=== PATIENT | female | born 2000 | race Caucasian/White ===

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

== ENCOUNTER 2024-01-01 10:21 | Day surgery (SDC) | payer BC ==
--- OUTSIDE RECORDS SUMMARY | 2024-01-01 10:24 | XMS REPORT | Continuity of Care Document ---
Author Name Unknown Address [address] [place] [address] [place] [address] [facility] Address [address] [facility] [address] [place] [address] Care Team Providers Care Intake Nurse Name Role Phone [email or web address] Attending Clinician Unavaila ble [email or web address] Admitting Clinician Unavaila ble Problems Condition Name Condition Details Condition Category Status Onset Date Resolution Date Last Treatment Date Treating Clinician Comments Source Premenstru al dysphoric disorder Premenstru al Dysphoric Disorder Problem Active 08-26 00:00: 00 [facility] Dysmenorrh ea Dysmenorrh ea Problem Active 08-26 00:00: 00 [facility] Headache Headache Problem Active 05-09 00:00: 00 [facility] Gynecologi lizeth examinatio n abnormal Gynecologi lizeth Examinatio n Abnormal Problem Active 05-09 00:00: 00 [facility] Hyperlipid emia Hyperlipid emia Problem Active 06-22 00:00: 00 [facility] Neutropeni a Neutropeni a Problem Active 06-22 00:00: 00 [facility] Irregular periods Irregular Periods Problem Active 05-27 00:00: 00 [facility] Moderate major depression , single episode Moderate Major Depression , Single Episode Problem Active 05-27 00:00: 00 [facility] Gender identity disorder Gender Identity Disorder Problem Active 05-27 00:00: 00 [facility] Social History Smoking Status Start Date Stop Date Source Never Smoker [facility] Medications Ordered Medication Name Filled Medication Name Start Date Stop Date Current Medication? Ordering Clinician Indication Dosage Frequency Signature (SIG) Comments Components Source Prozac 10 mg capsule Take 1 capsule every day by oral route for 30 days. May take 7-10 days monthly beginning day before onset of PMDD s/s, or may take daily Prozac 10 mg capsule Take 1 capsule every day by oral route for 30 days. May take 7-10 days monthly beginning day before onset of PMDD s/s, or may take daily No 1capsul e(s) Q1D Prozac 10 mg capsule Take 1 capsule every day by oral route for 30 days. May take 7-10 days monthly beginning day before onset of PMDD s/s, or may take daily [facility] Vital Signs Vital Name Observation Time Observation Value Comments S ource Height 2023-08-27 00:00:00 69 [in_i] [facility] Body Weight 2023-08-27 00:00:00 135.4 [lb_av] [facility] BP Diastolic 2023-08-27 00:00:00 65 mm[Hg] [facility] BMI (Body Mass Index) 2023-08-27 00:00:00 20 kg/m2 [facility] BP Systolic 2023-08-27 00:00:00 102 mm[Hg] [facility] Encounters Start Date/Time End Date/Time Encounter Type Admission Type Attending Clinicians Care Facility Care Department Encounter ID Source 2023-08-27 00:00:00 2023-08-27 00:00:00 Che Shepard, FACILITIES PLANNER: [address] [place], [place] [address], [place] [address] , Ph. [facility] - [email or web address] [facility]* [id number] [facility] 2023-01-20 00:00:00 2023-01-20 00:00:00 Outpatient [email or web address]_Xochilt diyala_S [facility] [id number] [facility]
[2024-01-01 11:06] LABS: Absolute Eosinophils 0.2 K/uL (0-0.5); Absolute Lymphocytes (CBC) 1.4 K/uL (0.7-4.9); Absolute Monocytes 0.8 K/uL (0.1-1.3); Absolute Neutrophil 8.2 K/uL (1.8-8.0); Basophils % 0.3 % (0-1.3); Eosinophils % 2.1 % (0-4.4); Hematocrit 38.1 % (36.0-45.0); Hemoglobin 12.8 g/dL (12.0-15.0); MCH 29.2 pg (27.0-35.0); MCHC 33.5 g/dL (32.0-36.0); MCV 87.2 fL (80-100); MPV 9.2 fL (7.6-11.3); Monocytes % 7.6 % (3.3-12.3); Platelets 202 thou/uL (152-406); RBC Red Blood Cell Count 4.36 M/uL (3.86-4.86); Red Cell Distribution Width 13.8 % (12.1-15.2)
[2024-01-01 11:27] LABS: AST/SGOT 12 U/L (15-37); Albumin 3.9 g/dL (3.4-5.0); Alkaline Phosphatase 71 U/L (45-117); Anion Gap 7.6 mEq/L (5.0-15.0); BUN Blood Urea Nitrogen 7 mg/dL (7-18); Bicarbonate 25 mEq/L (21-32); Bilirubin Total 1.4 mg/dL (0.2-1.0); Globulin 3.8 g/dL (2.3-3.5); Glomerular Filtration Rate 130 ml/min (=/>90); Glucose Level 87 mg/dL (74-106); Lipase 30 U/L (13-75); Potassium 3.6 mEq/L (3.5-5.1); Protein, Total 7.7 g/dL (6.4-8.2); Sodium Level 137 mEq/L (136-145)
[2024-01-01 11:28] LABS: ALT/SGPT < 14 U/L (13-56)
--- NOTE | 2024-01-01 12:21 | RAD REPORT ---
EXAMINATION: CT ABDOMEN AND PELVIS WITH CONTRAST CLINICAL INDICATION: Perirectal pain TECHNIQUE: CT abdomen and pelvis was performed, after the administration of IV contrast, as per [facility] protocol. Axial, sagittal and coronal reconstructions were obtained. One or more of the following dose reduction techniques were used: Automated exposure control, adjustment of the mA and k V according to patient size, and iterative reconstruction. Unless otherwise specified, incidental findings do not require dedicated imaging follow-up. COMPARISON: 02/19/2013 FINDINGS: LOWER CHEST: The visualized lung bases are clear. LIVER: Normal in size and contour. No focal lesion. SPLEEN: Normal size. No focal lesion. PANCREAS: No mass, ductal dilation, or himanshu-pancreatic fluid. ADRENALS: Normal; no mass. KIDNEYS: Normal size and contour. No hydronephrosis. GASTROINTESTINAL TRACT: No evidence of free air, significant intra-abdominal free fluid, bowel obstru ction or abscess. APPENDIX: Normal appendix. LYMPH NODES: No lymphadenopathy. MUSCULOSKELETAL: No acute or suspicious osseous abnormality. ADDITIONAL FINDINGS: 37 mm cystic structure right adnexa presumably ovarian follicle. Mild inflammation is seen along the left aspect of the perineum extending from the left labia majora to the left perirectal region. There is a 15 mm area of focal inflamed fat left perirectal location likely early developing abscess. IMPRESSION: Inflammation is seen along the left aspect of the perineum as detailed. Focal 15 mm early left perire ctal abscess suspected.
--- NOTE | 2024-01-01 12:59 | ER ---
Nurse's Notes [facility] Name: Marley Benítez Age: 23 yrs Sex: Female : 2000 Arrival Date: 01/01/2024 Time: 10:21 Bed 11 Private MD: Diagnosis: Perirectal abscess Presentation: 12/31 10:39 Chief complaint: Patient states: she was sent from providers office for abscess in ap3 rectal area. patient reports pain as 7/10 at this time. Coronavirus screen: At this time, the client does not indicate any symptoms associated with coronavirus-19. Ebola Screen: No symptoms or risks identified at this time. Initial Sepsis Screen: Does the patient meet any 2 criteria? HR > 90 bpm. Does the patient have a suspected source of infection? No. Patient's initial sepsis screen is negative. Risk Assessment: Do you want to hurt yourself or someone else? Patient reports no desire to harm self or others. Onset of symptoms is unknown. 10:39 Method Of Arrival: Ambulatory ap3 10:39 Acuity: MELECIO 3 ap3 Triage Assessment: 10:41 General: Appears in no apparent distress. Behavior is calm, cooperative, appropriate ap3 for age. Pain: Complains of pain in buttocks Pain currently is 7 out of 10 on a pain scale. Neuro: Level of Consciousness is awake, alert, obeys commands, Oriented to person, place, time, situation. Cardiovascular: Patient's skin is warm and dry. Respiratory: Airway is patent Respiratory effort is even, unlabored, Respiratory pattern is regular, symmetrical. Derm: Reports abscess in rectal area. 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 - Infectious Disease History:: Denies. - Social history:: Smoking status: Patient denies any tobacco usage or history of. Patient uses alcohol, only on a social basis. street drugs, marijuana. - Family history:: not pertinent. Screenin:42 [facility] ED Fall Risk Assessment (Adult) History of falling in the last 3 months, ap3 including since admission No falls in past 3 months (0 pts) Confusion or Disorientation No (0 pts) Intoxicated or Sedated No (0 pts) Impaired Gait No (0 pts) Mobility Assist Device Used No (0 pt) Altered Elimination No (0 pt) Score/Fall Risk Level 0 - 2 = Low Risk Oriented to surroundings, Maintained a safe environment, Educated pt \T\ family on fall prevention, incl call for assistance when getting out of bed, Assessed \T\ reinforced patient's understanding of fall precautions, Hourly rounding (assess needs \T\ fall precautionary measures) done, Used ambulatory aids as needed (educated on \T\ assisted with), Used gait belt as appropriate. Abuse screen: Denies threats or abuse. Nutritional screening: No deficits noted. Tuberculosis screening: No symptoms or risk factors identified. Assessment: 12:42 Reassessment: No changes from previously documented assessment. Patient and/or family ap3 updated on plan of care and expected duration. Pain level reassessed. Patient is alert, oriented x 3, equal unlabored respirations, skin warm/dry/pink. 13:59 Reassessment: No changes from previously documented assessment. Patient and/or family ap3 updated on plan of care and expected duration. Pain level reassessed. Patient is alert, oriented x 3, equal unlabored respirations, skin warm/dry/pink. General: Appears in no apparent distress. Behavior is calm, cooperative, appropriate for age. Pain: Complains of pain in buttocks Pain began gradually. Neuro: Level of Consciousness is awake, alert, obeys commands, Oriented to person, place, time, situation. Cardiovascular: Patient's skin is warm and dry. Respiratory: Airway is patent Respiratory effort is even, unlabored, Respiratory pattern is regular, symmetrical. Derm: Wound noted pelvis. Vital Signs: 10:39 BP 131 / 77; Pulse 92; Resp 17; Temp 97.8; Pulse Ox 100% ; Weight 56.7 kg; Pain 7/10; ap3 11:45 BP 114 / 77; Pulse 89; Resp 17; Pulse Ox 100% ; ap3 13:00 BP 119 / 79; Pulse 85; Resp 18; Pulse Ox 100% ; ap3 14:00 BP 116 / 73; Pulse 91; Resp 17; Pulse Ox 100% ; ap3 15:15 BP 108 / 77; Pulse 87; Temp 97.4; Pulse Ox 100% ; ap3 10:39 Pain Scale: Adult ap3 ED Course: 10:24 Patient arrived in ED. mg5 10:25 Sky Velazquez MD is Attending Physician. rt 10:41 Triage completed. ap3 10:42 Arm band placed on right wrist. ap3 10:43 Patient has correct armband on for positive identification. Placed in gown. Bed in low ap3 position. Call light in reach. Adult w/ patient. Provided Education on: call light education. 10:59 Test, Serum Sent. em1 10:59 CBC with Diff Sent. em1 10:59 CMP Sent. em1 10:59 Lipase Sent. em1 10:59 Initial lab(s) drawn, by me, sent to lab. Inserted saline lock: 22 gauge in right em1 antecubital area, using aseptic technique. Blood collected. Flushed with 10 mL NS. 11:55 CT Abd/Pelvis - IV Contrast Only In Process Unspecified. EDMS 12:58 Robby Ortega MD is Hospitalizing Provider. rt 15:50 No provider procedures requiring assistance completed. Patient admitted, IV remains in ap3 place. Administered Medications: 13:57 Drug: Ondansetron IVP 4 mg IVP once; over 2 minutes Route: IVP; Site: right antecubital;ap3 15:51 Follow up: Response: No adverse reaction ap3 13:57 Drug: Piperacillin-Tazobactam IVPB 3.375 grams IVPB once over 60 mins; (mix in NS 100 ap3 mL) Route: IVPB; Infused Over: 60 mins; Site: right antecubital; 15:51 Follow up: IV Status: Completed infusion ap3 13:58 Drug: morphine IVP or IV 4 mg IVP once over 4 mins {Note: this nurse only administered ap3 half the dose, and wasted the other half per patient request. she did not like the way it was making her feel during administration. CUCA Roman notified, ERP notified. .} Route: IVP; Infused Over: 4 mins; Site: right antecubital; 15:51 Follow up: Response: No adverse reaction; Pain is decreased ap3 Medication: 15:50 VIS not applicable for this client. ap3 Outcome: 12:58 Decision to Hospitalize by Provider. rt 15:50 Admitted to OR ap3 15:50 Condition: good 15:50 Instructed on the need for admit, 15:51 Patient left the ED. ap3 Signatures: Dispatcher [employer] Suraj Mcgovern em1 Yesenia Ventura RN RN ap3 Sky Velazquez MD MD rt Kaylee Bravo mg5
--- NOTE | 2024-01-01 12:59 | EDPHYS ---
Physician Documentation [facility] Name: Marley Benítez Age: 23 yrs Sex: Female : 2000 Arrival Date: 01/01/2024 Time: 10:21 Bed 11 Private MD: ED Physician Sky Velazquez HPI: 12/31 16:20 This 23 yrs old Female presents to ER via Ambulatory with complaints of Abscess. rt 16:20 Patient presents to the ED with possible perirectal abscess. Patient was seen at rt gynocologist office today. States that she noticed swelling to the area for some time but developed pain in the past few days. Denies other acute complaints at this time, symptoms are moderate in severity, no other aggravating or alleviating factors.. 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 - Infectious Disease History:: Denies. - Social history:: Smoking status: Patient denies any tobacco usage or history of. Patient uses alcohol, only on a social basis. street drugs, marijuana. - Family history:: not pertinent. ROS: 16:20 Constitutional: Negative for fever, chills, and weight loss, Cardiovascular: Negative rt for chest pain, palpitations, and edema, Respiratory: Negative for shortness of breath, cough, wheezing, and pleuritic chest pain, Abdomen/GI: Negative for abdominal pain, nausea, vomiting, diarrhea, and constipation, MS/Extremity: Negative for injury and deformity, Exam: 16:20 Constitutional: This is a well developed, well nourished patient who is awake, alert, rt and in no acute distress. Head/Face: Normocephalic, atraumatic. Chest/axilla: Normal chest wall appearance and motion. Nontender with no deformity. No lesions are appreciated. Cardiovascular: Regular rate and rhythm with a normal S1 and S2. No gallops, murmurs, or rubs. Normal PMI, no JVD. No pulse deficits. Respiratory: Lungs have equal breath sounds bilaterally, clear to auscultation and percussion. No rales, rhonchi or wheezes noted. No increased work of breathing, no retractions or nasal flaring. Abdomen/GI: Soft, non-tender, with normal bowel sounds. No distension or tympany. No guarding or rebound. No evidence of tenderness throughout. Skin: Warm, dry with normal turgor. Normal color with no rashes, no lesions, and no evidence of cellulitis. MS/ Extremity: Pulses equal, no cyanosis. Neurovascular intact. Full, normal range of motion. Vital Signs: 10:39 BP 131 / 77; Pulse 92; Resp 17; Temp 97.8; Pulse Ox 100% ; Weight 56.7 kg; Pain 7/10; ap3 11:45 BP 114 / 77; Pulse 89; Resp 17; Pulse Ox 100% ; ap3 13:00 BP 119 / 79; Pulse 85; Resp 18; Pulse Ox 100% ; ap3 14:00 BP 116 / 73; Pulse 91; Resp 17; Pulse Ox 100% ; ap3 15:15 BP 108 / 77; Pulse 87; Temp 97.4; Pulse Ox 100% ; ap3 10:39 Pain Scale: Adult ap3 MDM: 10:32 Patient medically screened. rt 16:20 Differential diagnosis: abscess. Data reviewed: vital signs, nurses notes, lab test rt result(s), radiologic studies. Consideration of Admission/Observation Patient was admitted/placed on observation. Management of patient was discussed with the following: Cleat Blanker: Discussed with Dr. Ortega who will operate on patient. Counseling: I had a detailed discussion with the patient and/or guardian regarding the historical points, exam findings, and any diagnostic results supporting the discharge/admit diagnosis, lab results, radiology results, the need for further work-up and treatment in the hospital. Response to treatment: the patient's symptoms have mildly improved after treatment. 12/31 10:39 Order name: CBC with Diff; Complete Time: 11:34 rt 12/31 10:39 Order name: CMP; Complete Time: 11:34 rt 12/31 10:39 Order name: Lipase; Complete Time: 11:34 rt 12/31 10:39 Order name: Test, Serum; Complete Time: 11:34 rt 12/31 10:39 Order name: CT Abd/Pelvis - IV Contrast Only; Complete Time: 12:22 rt 12/31 10:39 Order name: IV Saline Lock; Complete Time: 10:59 rt 12/31 10:39 Order name: Labs collected and sent; Complete Time: 10:59 rt 12/31 12:55 Order name: NPO; Complete Time: 13:31 rt Administered Medications: 13:57 Drug: Ondansetron IVP 4 mg IVP once; over 2 minutes Route: IVP; Site: right antecubital;ap3 15:51 Follow up: Response: No adverse reaction ap3 13:57 Drug: Piperacillin-Tazobactam IVPB 3.375 grams IVPB once over 60 mins; (mix in NS 100 ap3 mL) Route: IVPB; Infused Over: 60 mins; Site: right antecubital; 15:51 Follow up: IV Status: Completed infusion ap3 13:58 Drug: morphine IVP or IV 4 mg IVP once over 4 mins {Note: this nurse only administered ap3 half the dose, and wasted the other half per patient request. she did not like the way it was making her feel during administration. CUCA Roman notified, ERP notified. .} Route: IVP; Infused Over: 4 mins; Site: right antecubital; 15:51 Follow up: Response: No adverse reaction; Pain is decreased ap3 Disposition Summary: 01/01/24 12:58 Hospitalization Ordered Notes: Hospitalization Status: Observation rt Provider: Robby Ortega rt Condition: Stable rt Problem: new rt Symptoms: are unchanged rt Bed/Room Type: Standard rt Location: Telemetry/MedSurg (Inpatient)(01/01/24 15:41) eb Room Assignment: 210(01/01/24 15:41) eb Diagnosis - Perirectal abscess rt Forms: - Medication Reconciliation Form rt - SBAR form rt - Leadership Thank You Letter rt Signatures: Dispatcher [employer] Yesenia Dang RN RN ap3 Catalina Castro Ryan, MD MD rt Corrections: (The following items were deleted from the chart) 10:40 10:40 CBC+H.LAB.BRZ ordered. EDMS EDMS 10:40 10:40 COMPREHENSIVE METABOLIC PANEL+C.LAB.BRZ ordered. EDMS EDMS 10:40 10:40 LIPASE+C.LAB.BRZ ordered. EDMS EDMS 10:40 10:40 TEST, SERUM+SC.LAB.BRZ ordered. EDMS EDMS 10:40 10:40 Abdomen Pelvis W Con+CT.RAD.BRZ ordered. EDMS EDMS 15: 12:58 Operating Room rt eb 15: 12:58 rt eb
[2024-01-01] MEDS ORDERED: ONDANSETRON 4 MG/2 ML VIAL ONE ×2 (13:42→17:41)
[2024-01-01] MEDS ORDERED: NA CHLORIDE 0.9% 100 ML ONE (13:43)
[2024-01-01] MEDS ORDERED: PIPERACIL/TAZO 3.375 GM VIAL IV ONE (13:43)
[2024-01-01] MEDS ORDERED: MORPHINE 4 MG/ML SYR ONE (13:43)
[2024-01-01] MEDS: Ringers Lactate 1,000 ML IV ONE (15:45)
[2024-01-01] MEDS ORDERED: MIDAZOLAM HCL 2 MG/2 ML INJ ONE (17:18)
[2024-01-01] MEDS ORDERED: propofoL 200 MG/20 ML VIAL IV ONE (17:18)
[2024-01-01] MEDS ORDERED: FENTANYL CITR 100 MCG/2 ML ONE (17:19)
[2024-01-01] MEDS: LIDOCAINE HCL/EPINEPHRINE 20 ML MDV ONE (17:37)
[2024-01-01] MEDS ORDERED: dexAMETHasone 4 MG/ML VIAL ONE (17:42)
--- NOTE | 2024-01-01 17:58 | P.OP ---
Preoperative diagnosis: LEFT perirectal abscess Postoperative diagnosis: LEFT perirectal abscess Primary procedure: Incision and drainage of perirectal abscess Anesthesia: GETA + Local Estimated blood loss: <5cc Specimen: Cultures, Debridement Tissue Findings: ~ 2cm abscess Complications: None Implants: iodoform packing Transferred to: Recovery Room Condition: Good
[2024-01-01] MEDS ORDERED: MEPERIDINE HCL 25 MG/ML SYR ONE (18:00)
[2024-01-01 18:29] VITALS: TEMP 97.8
[2024-01-01 18:36] VITALS: BP 104/69; O2SAT 98
--- NOTE | 2024-01-01 21:20 | OP ---
Date of Procedure: 01/01/2024 Surgeon: Robby Ortega MD, Preoperative Diagnosis: Left perirectal abscess. Postoperative Diagnosis: Left perirectal abscess. Procedure: Incision and drainage of left perirectal abscess. Anesthesia: General endotracheal plus local, 1% lidocaine with epinephrine. Estimated Blood Loss: Less than 5 cc. Specimen: Culture sent for both aerobic and anaerobic speciation, debrided tissue. Findings: Approximately 2 cm perirectal abscess. Complications: None. Implants: Iodoform packing. Disposition: Transferred to recovery room in good condition. Procedure In Detail: After informed consent was obtained, patient was brought to the operating room, prepped and draped in the usual fashion. After adequate anesthesia was achieved, patient remained i n a lithotomy position. I anesthetized the left gluteal area approximately 1 cm from the perirectal edge/mucosa. I made an elliptical incision down. I immediately encountered abscess-type material. It was cultured for both aerobic and anaerobic speciation. I then removed this and found that there was some tunneling deeper. I opened this bluntly using a hemostat ultimately getting the cavity unro ofed. Additional pus was encountered at this point consistent with multiloculated abscess. After th is was digitized, the remaining loculations broken up. The area was copiously irrigated. Hemostasis was achieved with electrocautery. It was irrigated once again and packed with iodoform packing. St erile dressing was placed over top. The patient tolerated the procedure without incident or complica tion, transferred to PACU in good condition. All counts were correct at the end of the case. SABRA/JORDAN Voice ID: [id number] Report ID: [id number]
== END 2024-01-01 18:55 | disposition home or self-care (01) ==
LOC: ER 10:21 → DS 15:23
PROVIDERS: ATTEND Surgery
PROC: 0D9P3ZX Drainage of Rectum, Percutaneous Approach, Diagnostic (ICD-10-PCS; principal; 2024-01-01 16:30)
DX: K61.1 Rectal abscess (principal)
CPT/HCPCS: 87070; 85025; 36415; 87205; 84703; 87075; 83690; 80053; 74177; 46040; Q9967; J2704; J1100; J2543; J2250; J3010; J2175; J2405 ×2; J7120; 87077; 87186; 88304

== ENCOUNTER 2024-01-02 04:33 | Emergency (ER) | payer BC ==
--- OUTSIDE RECORDS SUMMARY | 2024-01-02 04:37 | XMS REPORT | Continuity of Care Document ---
Author Name Unknown Address [address] [place] [address] [place] [address] thconnect Address [address] [facility] [address] [place] [address] Care Team Providers Care Insurance Coordinator Name Role Phone [email or web address] Attending Clinician Unavaila [...] Stop Date Source Never Smoker [facility] Vital Signs Vital Name Observation Time Observation Value Comments S ource BP Systolic 2024-01-01 00:00:00 119 mm[Hg] [facility] BP Diastolic 2024-01-01 00:00:00 71 mm[Hg] [facility] Height 2024-01-01 00:00:00 69 [in_i] [facility] Body Weight 2024-01-01 00:00:00 141.8 [lb_av] [facility] BMI (Body Mass Index) 2024-01-01 00:00:00 20.9 kg/m2 [facility] Height 2023-08-27 00:00:00 69 [in_i] [facility] Body Weight 2023-08-27 00:00:00 135.4 [lb_av] [facility] BP Diastolic 2023-08-27 00:00:00 65 mm[Hg] [facility] BMI (Body Mass Index) 2023-08-27 00:00:00 20 kg/m2 [facility] BP Systolic 2023-08-27 00:00:00 102 mm[Hg] [facility] Encounters Start Date/Time End Date/Time Encounter Type Admission Type Attending [facility] Facility Care Department Encounter ID Source 2024-01-01 00:00:00 2024-01-01 00:00:00 Kaylee Bustamante PA: [address], [place] [address] , [facility] - [email or web address]_Parul dixon Earle* [id number] [facility] 2023-08-27 00:00:00 2023-08-27 00:00:00 LAVELL AlstonP: [address], [place] [address] , [facility] - GC_[email or web address]_Parul dixon Earle* [id number] [facility] 2023-01-20 00:00:00 2023-01-20 00:00:00 Outpatient [email or web address]_Xochilt garcia_S [facility] [id number] [facility]
[2024-01-02] MEDS ORDERED: CODEINE 30MG/APAP 300MG TAB ONE (05:13)
--- NOTE | 2024-01-02 05:19 | ER ---
Nurse's Notes [facility] [place] Name: Marley Benítez Age: 23 yrs Sex: Female : 2000 Arrival Date: 01/02/2024 Time: 04:33 Bed 14 Private MD: Diagnosis: Postoperative incision check, encounter for postoperative wound check and dressing change, left perirectal abscess status post incision and drainage Presentation: 01/01 04:50 Chief complaint: Patient states: she had surgery yesterday for an abscess and states cp4 that the packing material got wet and fell out. Coronavirus screen: Client denies travel out of the [place] in the last 14 days. At this time, the client does not indicate any symptoms associated with coronavirus-19. Ebola Screen: Patient negative for fever greater than or equal to 101.5 degrees Fahrenheit, and additional compatible Ebola Virus Disease symptoms Patient denies exposure to infectious person. Patient denies travel to an Ebola-affected area in the 21 days before illness onset. No symptoms or risks identified at this time. Initial Sepsis Screen: Does the patient meet any 2 criteria? No. Patient's initial sepsis screen is negative. Does the patient have a suspected source of infection? No. Patient's initial sepsis screen is negative. Risk Assessment: Do you want to hurt yourself or someone else? Patient reports no desire to harm self or others. Onset of symptoms was January 02, 2024. 04:50 Method Of Arrival: Ambulatory cp4 04:50 Acuity: MELECIO 3 cp4 Triage Assessment: 04:52 General: Appears in no apparent distress. uncomfortable, Behavior is calm, cooperative, cp4 appropriate for age. Pain: Complains of pain in buttocks Pain does not radiate. Pain currently is 5 out of 10 on a pain scale. EENT: No signs and/or symptoms were reported regarding the EENT system. Neuro: Level of Consciousness is awake, alert, obeys commands, Oriented to person, place, time, situation. Cardiovascular: Patient's skin is warm and dry. Respiratory: Airway is patent Respiratory effort is even, unlabored. GI: No signs and/or symptoms were reported involving the gastrointestinal system. : No signs and/or symptoms were reported regarding the genitourinary system. Derm: Reports wound dressing removed from surgical site on buttocks. Musculoskeletal: No signs and/or symptoms reported regarding the musculoskeletal system. CREDIT COLLECTIONS REP: 04:52 Not cp4 Historical: - Allergies: 04:52 No Known Allergies; cp4 - PMHx: 04:52 Anxiety; Depression; cp4 - Immunization history:: Adult Immunizations up to date. - Infectious Disease History:: Denies. - Social history:: Smoking status: Patient denies any tobacco usage or history of. - Family history:: not pertinent. Screenin:54 [facility] ED Fall Risk Assessment (Adult) History of falling in the last 3 months, cp4 including since admission No falls in past 3 months (0 pts) Confusion or Disorientation No (0 pts) Intoxicated or Sedated No (0 pts) Impaired Gait No (0 pts) Mobility Assist Device Used No (0 pt) Altered Elimination No (0 pt) Score/Fall Risk Level 0 - 2 = Low Risk Oriented to surroundings, Maintained a safe environment, Assessed \T\ reinforced patient's understanding of fall precautions, Hourly rounding (assess needs \T\ fall precautionary measures) done. Abuse screen: Denies threats or abuse. Nutritional screening: No deficits noted. Tuberculosis screening: No symptoms or risk factors identified. Assessment: 04:54 Reassessment: No changes from previously documented assessment. cp4 Vital Signs: 04:50 BP 125 / 91; Pulse 89; Resp 18; Temp 98; Pulse Ox 100% ; Weight 65.77 kg; Height 5 ft. cp4 9 in. ; Pain 5/10; 04:50 Body Mass Index 21.41 (65.77 kg, 175.26 cm) cp4 04:50 Pain Scale: Adult cp4 [place] Coma Score: 05:10 Eye Response: spontaneous(4). Motor Response: obeys commands(6). Verbal Response: sp4 oriented(5). Total: 15. ED Course: 04:35 Patient arrived in ED. jj6 04:42 David Bright MD is Attending Physician. sp4 04:50 Kellee Barone is Primary Nurse. cp4 04:52 Triage completed. cp4 04:52 Arm band placed on right wrist. Patient placed in an exam room, on a stretcher. cp4 04:54 Bed in low position. Call light in reach. Side rails up X 1. Provided Education on: cp4 surgical site care. 05:16 Robby Ortega MD is Referral Physician. sp4 05:22 No provider procedures requiring assistance completed. Patient did not have IV access cp4 during this emergency room visit. Administered Medications: 05:18 Drug: Acetaminophen-Codeine PO (300 mg-30 mg) 2 tabs PO once; RASS on ADMIN: Combtv4, cp4 Very Agttd3, Agttd2, Rstlss1, AlertClm0, Drwsy-1, Lt Sdtn-2, Mod Sdtn-3, Dp Sdtn-4, UnArsble-5 Route: PO; 05:23 Follow up: Response: No adverse reaction cp4 Medication: 04:54 VIS not applicable for this client. cp4 Outcome: 05:18 Discharge ordered by . sp4 05:22 Discharged to home ambulatory, cp4 05:22 Condition: stable 05:22 Discharge instructions given to patient, Instructed on discharge instructions, follow up and referral plans. Demonstrated understanding of instructions, follow-up care, 05:23 Patient left the ED. cp4 Signatures: Che Chilel Sergey, MD MD sp4 Kellee Barone cp4
--- NOTE | 2024-01-02 05:19 | EDPHYS ---
Physician Documentation [facility] Name: Marley Benítez Age: 23 yrs Sex: Female : 2000 Arrival Date: 01/02/2024 Time: 04:33 Bed 14 Private MD: ED Physician David Bright HPI: 01/01 04:42 This 23 yrs old Female presents to ER via Unassigned with complaints of Post sp4 Surgical Pain, Post Surgical Bleeding. 05:10 23-year-old female had left inferior labial vs Left perirectal abscess drainage sp4 yesterday 01/01/[address] Ortega. . 05:10 Patient states she thinks her packing fell out and she presents here for wound check sp4 and repacking. . 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 - Infectious Disease History:: Denies. - Social history:: Smoking status: Patient denies any tobacco usage or history of. - Family history:: not pertinent. ROS: 05:10 Constitutional: Negative for fever, chills, and weight loss, positive left perianal sp4 postoperative incision discomfort 05:10 All other systems are negative, Exam: 05:10 Constitutional: This is a well developed, well nourished patient who is awake, alert, sp4 and in no acute distress. Head/Face: Normocephalic, atraumatic. Eyes: Pupils equal round and reactive to light, extra-ocular motions intact. Lids and lashes normal. Conjunctiva and sclera are not injected. Cornea within normal limits. Periorbital areas with no swelling, redness, or edema. ENT: Nares patent. No nasal discharge, no septal abnormalities noted. Tympanic membranes are normal and external auditory canals are clear. Oropharynx with no redness, swelling, or masses, exudates, or evidence of obstruction, uvula midline. Mucous membranes moist. Neck: Trachea midline, no thyromegaly or masses palpated, and no cervical lymphadenopathy. Supple, full range of motion without nuchal rigidity, or vertebral point tenderness. Chest/axilla: Normal chest wall appearance and motion. Nontender with no deformity. No lesions are appreciated. Cardiovascular: Regular rate and rhythm with a normal S1 and S2. No gallops, murmurs, or rubs. Normal PMI, no JVD. No pulse deficits. Respiratory: Lungs have equal breath sounds bilaterally, clear to auscultation and percussion. No rales, rhonchi or wheezes noted. No increased work of breathing, no retractions or nasal flaring. Abdomen/GI: Soft, with normal bowel sounds. No distension or tympany. No guarding or rebound. No evidence of tenderness throughout. Back: No spinal tenderness. No costovertebral tenderness. Pelvic Exam: Normal external genitalia. 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 The incision does not need to be repacked. Sterile dressing was replaced. Patient stable for discharge home. Skin: Warm, dry with normal turgor. Normal color with no rashes, no lesions, and no evidence of cellulitis. MS/ Extremity: Pulses equal, no cyanosis. Neurovascular intact. Full, normal range of motion. Neuro: Awake and alert, GCS 15, oriented to person, place, time, and situation. Cranial nerves II-XII grossly intact. Motor strength 5/5 in all extremities. Sensory grossly intact. Psych: Awake, alert, with orientation to person, place and time. Behavior, mood, and affect are within normal limits Vital Signs: 04:50 BP 125 / 91; Pulse 89; Resp 18; Temp 98; Pulse Ox 100% ; Weight 65.77 kg; Height 5 ft. cp4 9 in. ; Pain 5/10; 04:50 Body Mass Index 21.41 (65.77 kg, 175.26 cm) cp4 04:50 Pain Scale: Adult cp4 Alexandra Coma Score: 05:10 Eye Response: spontaneous(4). Motor Response: obeys commands(6). Verbal Response: sp4 oriented(5). Total: 15. MDM: 05:15 Differential diagnosis: rosendo infection, Post operative infection, post op sp4 complications. Data reviewed: vital signs, nurses notes, old medical records. ED course: Dressing was reapplied. The wound does not need to be repacked. Patient advised to see her general surgeon on Thursday for wound check.. 05:18 Patient medically screened. sp4 01/01 05:08 Order name: Wound Care: done by ; Complete Time: 05:11 sp4 Administered Medications: 05:18 Drug: Acetaminophen-Codeine PO (300 mg-30 mg) 2 tabs PO once; RASS on ADMIN: Combtv4, cp4 Very Agttd3, Agttd2, Rstlss1, AlertClm0, Drwsy-1, Lt Sdtn-2, Mod Sdtn-3, Dp Sdtn-4, UnArsble-5 Route: PO; 05:23 Follow up: Response: No adverse reaction cp4 Disposition Summary: 01/02/24 05:18 Discharge Ordered Notes: Location: Home sp4 Problem: new sp4 Symptoms: have improved sp4 Condition: Stable sp4 Diagnosis - Postoperative incision check, encounter for postoperative wound check and sp4 dressing change, left perirectal abscess status post incision and drainage Followup: sp4 - With: Robby Ortega MD - When: 1 - 2 days - Reason: Recheck today's complaints Discharge Instructions: - Discharge Summary Sheet sp4 - Anorectal Abscess sp4 Forms: - Patient Portal Instructions sp4 Signatures: David Bright MD MD sp4 Kellee Barone cp4
[2024-01-02 10:00] VITALS: BP 125/91; TEMP 98; O2SAT 100
== END 2024-01-02 05:23 | disposition home or self-care (01) ==
LOC: ER 04:33
DX: Z48.01 Encounter for change or removal of surgical wound dressing (principal)

== ENCOUNTER 2024-01-25 10:21 | Emergency (ER) | payer BC ==
--- OUTSIDE RECORDS SUMMARY | 2024-01-25 10:23 | XMS REPORT | Continuity of Care Document ---
Author Name Unknown Address [address] [place] [address] [place] [address] [address] [facility] [address] [place] [address] Care Team Providers Care Solution Design And Analysis Manager Name Role Phone [email or web address] Attending Clinician Unavaila [...] End Date/Time Encounter Type Admission Type Attending [facility] Care Department Encounter ID Source 2024-01-01 00:00:00 2024-01-01 00:00:00 Kaylee Bustamante PA: [address], [place] [address] , Ph. [facility] - [email or web address]_Parul dixon Santa* [id number] [facility] 2023-08-27 00:00:00 2023-08-27 00:00:00 LAVELL AlstonP: [address], [place] [address] , Ph. [facility] - GC_[email or web address]_Parul dixon Santa* [id number] [facility] 2023-01-20 00:00:00 2023-01-20 00:00:00 Outpatient [email or web address] [email or web address]_S [facility] [id number] [facility]
--- NOTE | 2024-01-25 11:35 | EDPHYS ---
Physician Documentation [facility] Name: Marley Benítez Age: 23 yrs Sex: Female : 2000 Arrival Date: 01/25/2024 Time: 10:21 Bed 12 Private MD: ED Physician Dougie Brasher HPI: 01/24 11:27 This 23 yrs old Female presents to ER via Ambulatory with complaints of stanley Abscess. 11:27 The patient presents with an abscess of the groin. Description: erythematous, swollen. stanley Onset: The symptoms/episode began/occurred 2 day(s) ago. Possible cause(s): hair. Associated signs and symptoms: The patient has no apparent associated signs or symptoms. Severity of symptoms: At their worst the symptoms were mild, in the emergency department the symptoms are unchanged. The patient has experienced similar episodes in the past, several times. Historical: - Allergies: 11: No Known Allergies; ss - PMHx: 11: Anxiety; Depression; ss - Infectious Disease History:: Denies. - Family history:: not pertinent. ROS: 11:27 Constitutional: Negative for fever, chills, and weight loss, Eyes: Negative for injury, stanley pain, redness, and discharge, ENT: Negative for injury, pain, and discharge, Neck: Negative for injury, pain, and swelling, Cardiovascular: Negative for chest pain, palpitations, and edema, Respiratory: Negative for shortness of breath, cough, wheezing, and pleuritic chest pain, Abdomen/GI: Negative for abdominal pain, nausea, vomiting, diarrhea, and constipation, Back: Negative for injury and pain, : Negative for injury, bleeding, discharge, and swelling, MS/Extremity: Negative for injury and deformity, Neuro: Negative for headache, weakness, numbness, tingling, and seizure, Psych: Negative for depression, anxiety, suicide ideation, homicidal ideation, and hallucinations, Allergy/Immunology: Negative for hives, rash, and allergies, Endocrine: Negative for neck swelling, polydipsia, polyuria, polyphagia, and marked weight changes, Hematologic/Lymphatic: Negative for swollen nodes, abnormal bleeding, and unusual bruising, 11:27 Skin: Positive for erythema, swelling, Exam: 11:27 Constitutional: This is a well developed, well nourished patient who is awake, alert, stanley and in no acute distress. Head/Face: Normocephalic, atraumatic. Eyes: Pupils equal round and reactive to light, extra-ocular motions intact. Lids and lashes normal. Conjunctiva and sclera are non-icteric and not injected. Cornea within normal limits. Periorbital areas with no swelling, redness, or edema. ENT: Nares patent. No nasal discharge, no septal abnormalities noted. Tympanic membranes are normal and external auditory canals are clear. Oropharynx with no redness, swelling, or masses, exudates, or evidence of obstruction, uvula midline. Mucous membranes moist. Neck: Trachea midline, no thyromegaly or masses palpated, and no cervical lymphadenopathy. Supple, full range of motion without nuchal rigidity, or vertebral point tenderness. No Meningismus. Chest/axilla: Normal chest wall appearance and motion. Nontender with no deformity. No lesions are appreciated. Cardiovascular: Regular rate and rhythm with a normal S1 and S2. No gallops, murmurs, or rubs. Normal PMI, no JVD. No pulse deficits. Respiratory: Lungs have equal breath sounds bilaterally, clear to auscultation and percussion. No rales, rhonchi or wheezes noted. No increased work of breathing, no retractions or nasal flaring. Abdomen/GI: Soft, non-tender, with normal bowel sounds. No distension or tympany. No guarding or rebound. No evidence of tenderness throughout. Back: No spinal tenderness. No costovertebral tenderness. Full range of motion. MS/ Extremity: Pulses equal, no cyanosis. Neurovascular intact. Full, normal range of motion. Neuro: Awake and alert, GCS 15, oriented to person, place, time, and situation. Cranial nerves II-XII grossly intact. Motor strength 5/5 in all extremities. Sensory grossly intact. Cerebellar exam normal. Normal gait. Psych: Awake, alert, with orientation to person, place and time. Behavior, mood, and affect are within normal limits. 11:27 Skin: abscess, that is small, of the groin, cellulitis, that is minimal, induration, that is mild is noted, injury, is not appreciated, Vital Signs: 11:25 BP 121 / 86; Pulse 78; Resp 16; Temp 97.5(TE); Pulse Ox 100% on R/A; Weight 60.33 kg; ss Height 5 ft. 8 in. ; Pain 5/10; 11:25 Body Mass Index 20.22 (60.33 kg, 172.72 cm) ss 11:25 Pain Scale: Adult ss MDM: 10:30 Medical Screening Exam initiated stanley Administered Medications: 12:11 Drug: Doxycycline PO 200 mg PO once Route: PO; iw 12:12 Follow up: Response: Medication administered at discharge. iw 12:11 Drug: Mupirocin Topical Ointment 2 % 1 application Topical once Route: Topical; Site: iw affected area; 12:11 Drug: Trimethoprim-Sulfamethoxazole PO (160 mg-800 mg (DS) 1 tablet PO once Route: PO; iw 12:12 Follow up: Response: No adverse reaction; Medication administered at discharge. iw 12:11 Drug: Ibuprofen PO 600 mg PO once Route: PO; iw 12:12 Follow up: Response: Medication administered at discharge. iw Disposition Summary: 01/25/24 11:35 Discharge Ordered Notes: Location: Home stanley Problem: new stanley Symptoms: have improved stanley Condition: Stable stanley Diagnosis - Cutaneous abscess of other sites - right labia stanley Followup: stanley - With: Private Physician - When: 2 - 3 days - Reason: Recheck today's complaints, Continuance of care, Re-evaluation by your physician Followup: stanley - With: Robby Ortega MD - When: 2 - 3 days - Reason: Recheck today's complaints, Re-evaluation by your physician Followup: stanley - With: Kristy Harrell MD - When: 2 - 3 days - Reason: Recheck today's complaints, Re-evaluation by your physician Discharge Instructions: - Discharge Summary Sheet stanley - Skin Abscess stanley - How to Take a Sitz Bath stanley - Skin Abscess, [id number]-[id number] stanley Forms: - Medication Reconciliation Form stanley - Antibiotic Education stanley - Prescription Opioid Use stanley - Patient Portal Instructions [facility] - Leadership Thank You Letter [facility] Prescriptions: - Centany 2 % Topical ointment - apply 1 application TOPICAL route 3 times per day; 15 gram; Refills: 0, Product stanley Selection Permitted - Ibuprofen 600 mg Oral tablet - take 1 tablet ORAL route every 6 hours As needed take with food; 21 tablet; stanley Refills: 0, Product Selection Permitted - Doxycycline Hyclate 100 mg Oral Tablet - take 1 tablet ORAL route every 12 hours; 20 tablet; Refills: 0, Product stanley Selection Permitted - Bactrim DS 800-160 mg Oral Tablet - take 1 tablet ORAL route every 12 hours for 10 days; 20 tablet; Refills: 0, stanley Product Selection Permitted Signatures: Dougie Brasher MD MD cha Williams, Irene RN RN Monika Rivas RN RN ss
--- NOTE | 2024-01-25 11:35 | ER ---
Nurse's Notes [facility] Name: Marley Benítez Age: 23 yrs Sex: Female : 2000 Arrival Date: 01/25/2024 Time: 10:21 Bed 12 Private MD: Diagnosis: Cutaneous abscess of other sites-right labia Presentation: 01/24 11:25 Chief complaint: Patient states: redness, pain and swelling to labia x 2 days[address] Sent by ss Dr. Ortega for further evaluation. Coronavirus screen: Client denies travel out of the [place] in the last 14 days. Ebola Screen: Patient denies exposure to infectious person. Patient denies travel to an Ebola-affected area in the 21 days before illness onset. Initial Sepsis Screen: Does the patient meet any 2 criteria? No. Patient's initial sepsis screen is negative. Does the patient have a suspected source of infection? No. Patient's initial sepsis screen is negative. Risk Assessment: Do you want to hurt yourself or someone else? Patient reports no desire to harm self or others. Onset of symptoms was January 23, 2024. 11:25 Method Of Arrival: Ambulatory ss 11:25 Acuity: MELECIO 4 ss Triage Assessment: 12:00 General: Appears in no apparent distress. Behavior is calm. iw Historical: - Allergies: 11:26 No Known Allergies; ss - PMHx: 11:26 Anxiety; Depression; ss - Infectious Disease History:: Denies. - Family history:: not pertinent. Screenin:00 [facility] ED Fall Risk Assessment (Adult) History of falling in the last 3 months, iw including since admission No falls in past 3 months (0 pts) Confusion or Disorientation No (0 pts) Intoxicated or Sedated No (0 pts) Impaired Gait No (0 pts) Mobility Assist Device Used No (0 pt) Altered Elimination No (0 pt) Score/Fall Risk Level 0 - 2 = Low Risk Oriented to surroundings, Maintained a safe environment. Abuse screen: Denies threats or abuse. Denies injuries from another. Nutritional screening: No deficits noted. Tuberculosis screening: No symptoms or risk factors identified. Assessment: 12:00 General: Appears in no apparent distress. Behavior is calm, cooperative. Pain: iw Complains of pain in groin. Neuro: Level of Consciousness is awake, alert, obeys commands, Oriented to person, place, time, situation, Moves all extremities. Full function. Cardiovascular: Patient's skin is warm and dry. Respiratory: Respiratory effort is even, unlabored, Respiratory pattern is regular, symmetrical. Derm: Skin is intact, is healthy with good turgor. Musculoskeletal: Range of motion: intact in all extremities. Vital Signs: 11:25 BP 121 / 86; Pulse 78; Resp 16; Temp 97.5(TE); Pulse Ox 100% on R/A; Weight 60.33 kg; ss Height 5 ft. 8 in. ; Pain 5/10; 11:25 Body Mass Index 20.22 (60.33 kg, 172.72 cm) ss 11:25 Pain Scale: Adult ss ED Course: 10:24 Patient arrived in ED. mg5 10:30 Douige Brasher MD is Attending Physician. stanley 11:25 Monika Mart RN is Primary Nurse. ss 11:26 Triage completed. ss 11:26 Arm band placed on right wrist. ss 11:34 Robby Ortega MD is Referral Physician. stanley 11:35 Kristy Harrell MD is Referral Physician. stanley 12:10 Patient did not have IV access during this emergency room visit. iw 12:11 Primary Nurse role handed off by Monika Mart RN iw 12:11 Sammie Ross, [facility] is Primary Nurse. iw Administered Medications: 12:11 Drug: Doxycycline PO 200 mg PO once Route: PO; iw 12:12 Follow up: Response: Medication administered at discharge. iw 12:11 Drug: Mupirocin Topical Ointment 2 % 1 application Topical once Route: Topical; Site: iw affected area; 12:11 Drug: Trimethoprim-Sulfamethoxazole PO (160 mg-800 mg (DS) 1 tablet PO once Route: PO; iw 12:12 Follow up: Response: No adverse reaction; Medication administered at discharge. iw 12:11 Drug: Ibuprofen PO 600 mg PO once Route: PO; iw 12:12 Follow up: Response: Medication administered at discharge. iw Medication: 12:00 VIS not applicable for this client. iw Outcome: 11:35 Discharge ordered by . stanley 12:11 Discharged to home ambulatory, iw 12:11 Condition: good 12:11 Discharge instructions given to patient, 12:11 Instructed on discharge instructions, follow up and referral plans. medication usage, Demonstrated understanding of instructions, follow-up care, medications, Prescriptions given X 3, 12:12 Patient left the ED. iw Signatures: Dougie Brasher MD MD cha Williams, Irene RN RN Monika Rivas RN RN Kaylee Powers mg5
[2024-01-25] MEDS ORDERED: SMZ./TMP. 800/160 MG TABLET ONE (11:46)
[2024-01-25] MEDS ORDERED: DOXYCYCLINE 100 MG CAP PO ONE (11:46)
[2024-01-25] MEDS ORDERED: IBUPROFEN 200 MG TAB PO ONE (11:47)
[2024-01-25] MEDS ORDERED: MUPIROCIN 2% OINT 22GM TUBE TOP ONE (11:53)
[2024-01-25 12:34] VITALS: BP 121/86; TEMP 97.5; O2SAT 100
== END 2024-01-25 12:12 | disposition home or self-care (01) ==
LOC: ER 10:21
DX: N76.4 Abscess of vulva (principal)
CPT/HCPCS: 99283